=== PATIENT | female | born 1995 | race Two or more races ===

== ENCOUNTER 2016-06-11 13:23 | Emergency (ER) | payer MEDICAID ==
--- NOTE | 2016-06-11 14:10 | ER Document Report ---
ED Medical Screen (RME) - General Chief Complaint: Abdominal Pain Stated Complaint: POSSIBLE Notes: This 21-year-old female patient comes emergency room requesting a test. She eventually decided her last menstrual period was April 22. She reports cramping in the abdomen in the mornings. I have greeted and performed a rapid initial assessment of this patient. A comprehensive ED assessment and evaluation of the patient, analysis of test results and completion of the medical decision making process will be conducted by additional ED providers. TRAVEL OUTSIDE OF THE [place] IN LAST 30 DAYS: No Past Medical History Renal/ Medical History: Denies: Hx Peritoneal Dialysis Physical Exam - Vital signs Vitals: Temp Pulse Resp BP Pulse Ox 98.6 F 81 18 101/85 100 06/11/16 13:33 06/11/16 13:33 06/11/16 13:33 06/11/16 13:33 06/11/16 13:33 Course - Vital Signs Vital signs: Temp Pulse Resp BP Pulse Ox 98.6 F 81 18 101/85 100 06/11/16 13:33 06/11/16 13:33 06/11/16 13:33 06/11/16 13:33 06/11/16 13:33
[2016-06-11 14:39] LABS: APPEARANCE,URINE SLIGHTLY-CLOUDY; BILIRUBIN,URINE NEGATIVE (NEGATIVE); GLUCOSE, URINE NEGATIVE (NEGATIVE); KETONES,URINE NEGATIVE (NEGATIVE); LEUKOCYTE ESTERASE,URINE TRACE (NEGATIVE); NITRITE,URINE NEGATIVE (NEGATIVE); PROTEIN,URINE NEGATIVE (NEGATIVE); URINE SPECIFIC GRAVITY 1.016; UROBILINOGEN,URINE NEGATIVE mg/dL (<2.0)
--- NOTE | 2016-06-11 17:11 | ER Document Report ---
ED GI/ - General Chief Complaint: Abdominal Pain Stated Complaint: POSSIBLE Time seen by provider: 17:09 Mode of Arrival: Ambulatory Information source: Patient Notes: 21-year-old G0 female missed her menses May 20 and suspected 4-5 days ago when she had brief spotting when she urinated. She's been having morning intermittent mild cramping in the pelvis. No vaginal discharge or odor. No dysuria frequency or urgency. No nausea or vomiting. Her urine test was positive the serum quantitative has not been drawn. She has been to ultrasound. TRAVEL OUTSIDE OF THE [place] IN LAST 30 DAYS: No - Related Data Allergies/Adverse Reactions: No Known Allergies Allergy (Unverified 06/11/16 17:25) Past Medical History - General Information source: Patient - Social History Smoking Status: Never Smoker Frequency of alcohol use: None Drug Abuse: None Lives with: Family Family History: Reviewed & Not Pertinent Patient has suicidal ideation: No Patient has homicidal ideation: No - Medical History Medical History: Negative Renal/ Medical History: Denies: Hx Peritoneal Dialysis Surgical Hx: Negative Review of Systems - Review of Systems Constitutional: No symptoms reported EENT: No symptoms reported Cardiovascular: No symptoms reported Respiratory: No symptoms reported Gastrointestinal: No symptoms reported Genitourinary: No symptoms reported Female Genitourinary: See HPI Musculoskeletal: No symptoms reported Skin: No symptoms reported Hematologic/Lymphatic: No symptoms reported Neurological/Psychological: No symptoms reported Physical Exam - Vital signs Vitals: Temp Pulse Resp BP Pulse Ox 98.6 F 81 18 101/85 100 06/11/16 13:33 06/11/16 13:33 06/11/16 13:33 06/11/16 13:33 06/11/16 13:33 Interpretation: Normal - General General appearance: Appears well, Alert In distress: None - HEENT Head: Normocephalic, Atraumatic Eyes: Normal Pupils: PERRL Neck: Supple - Respiratory Respiratory status: No respiratory distress Chest status: Nontender Breath sounds: Normal Chest palpation: Normal - Cardiovascular Rhythm: Regular Heart sounds: Normal auscultation Murmur: No - Abdominal Inspection: Normal Distension: No distension Bowel sounds: Normal Tenderness: Nontender. No: Tender Organomegaly: No organomegaly - Back Back: Normal, Nontender. No: CVA tenderness - Extremities General upper extremity: Normal inspection, Nontender, Normal color, Normal ROM , Normal temperature General lower extremity: Normal inspection, Nontender, Normal color, Normal ROM , Normal temperature, Normal weight bearing. No: Shalini's sign - Neurological Neuro grossly intact: Yes Cognition: Normal Orientation: AAOx4 Theresa Coma Scale Eye Opening: Spontaneous [place] Coma Scale Verbal: Oriented Theresa Coma Scale Motor: Obeys Commands [place] Coma Scale Total: 15 Speech: Normal Motor strength normal: LUE, RUE, LLE, RLE Sensory: Normal - Psychological Associated symptoms: Normal affect, Normal mood - Skin Skin Temperature: Warm Skin Moisture: Dry Skin Color: Normal Skin irregularity: negative: Rash Course - Re-evaluation Re-evalutation: 06/11/16 17:28 IUP with heart tones of 174 measuring 6 weeks 1 day crown to rump length per radiologist. No subchorionic bleed. Urinalysis is negative. Quantitative is 11,802 which is low for 6 weeks and 1 day, she can follow-up with the health department now that the ultrasound said 6 weeks and 1 day and they can follow- up with hcg levels. Blood type is B+ she will not need RhoGAM. - Vital Signs Vital signs: Temp Pulse Resp BP Pulse Ox 97.5 F 80 16 119/74 100 06/11/16 18:41 06/11/16 18:41 06/11/16 18:41 06/11/16 18:41 06/11/16 18:41 - Laboratory Laboratory results interpreted by me: 06/11/16 06/11/16 14:10 17:10 Beta HCG, Quant 93066.00 H Ur Leukocyte Esterase TRACE H Urine HCG, Qual POSITIVE H Discharge - Discharge Clinical Impression: early viable IUP 6 weeks 1 day Condition: Good Disposition: HOME, SELF-CARE Instructions: Pelvic Pain in ([facility]), ([facility]), [facility], [facility] ([facility]) Additional Instructions: See the health department All the labs and imaging have been given to you Return to the emergency room for increased pain or vaginal bleeding Drink 2 L of water per day Stop drinking caffeine Stop smoking cigarettes and marijuana multivitamin daily no [id number] medicines No alcohol Please complete the patient satisfaction survey if you get one, and return it.. If you do not receive a survey, then you can go to the [facility] website, [email or web address] and place your comments about your very good care. Thank you very much. It was a pleasure being your medical provider today. Forms: Return to Work
[2016-06-11 18:48] VITALS: BP 119/74
== END 2016-06-11 18:48 | disposition home or self-care (01) ==
LOC: ER 13:23
DX: O26.91 Pregnancy related conditions, unspecified, first trimester (principal); Z3A.01 Less than 8 weeks gestation of pregnancy
CPT/HCPCS: 36415; 76817; 81001; 81025; 84702; 86900; 86901; 99284

== ENCOUNTER 2016-06-25 12:25 | Emergency (ER) | payer MEDICAID ==
--- NOTE | 2016-06-25 13:35 | ER Document Report ---
ED General - General Chief Complaint: Vag Bleeding, +preg <12wks Stated Complaint: ABDOMINAL CRAMPING/VAGINAL BLEEDING Mode of Arrival: Ambulatory Information source: Patient Notes: 21-year-old female who is approximately 8 weeks who confirmed IUP 2 weeks ago presents with complaints of vaginal spotting. Patient admits to mild cramping the left lower quadrant. Denies any large clots. TRAVEL OUTSIDE OF THE [place] IN LAST 30 DAYS: No - HPI Onset: Other - 3 days Onset/Duration: Intermittent Quality of pain: Cramping Severity: Mild Pain Level: 1 Associated symptoms: Other Exacerbated by: Denies Relieved by: Denies Similar symptoms previously: Yes Recently seen / treated by doctor: Yes - Related Data Allergies/Adverse Reactions: No Known Allergies Allergy (Verified 06/25/16 12:33) Past Medical History - General Last Menstrual Period: 04/2016 - Social History Smoking Status: Never Smoker Cigarette use (# per day): No Chew tobacco use (# tins/day): No Smoking Education Provided: No Family History: Reviewed & Not Pertinent Patient has suicidal ideation: No Patient has homicidal ideation: No Renal/ Medical History: Denies: Hx Peritoneal Dialysis - Immunizations Hx Diphtheria, Pertussis, Tetanus Vaccination: No Review of Systems - Review of Systems Notes: REVIEW OF SYSTEMS: CONSTITUTIONAL : Denies fever, chills, or sweats. Denies recent illness. EENT: Denies eye, ear, throat, or mouth pain or symptoms. Denies nasal or sinus congestion or discharge. Denies throat, tongue, or mouth swelling or difficulty swallowing. CARDIOVASCULAR: Denies chest pain. Denies palpitations or racing or irregular heart beat. Denies ankle edema. RESPIRATORY: Denies cough, cold, or chest congestion. Denies shortness of breath, difficulty breathing, or wheezing. GASTROINTESTINAL: Denies abdominal pain or distention. Denies nausea, vomiting , or diarrhea. Denies blood in vomitus, stools, or per rectum. Denies black, tarry stools. Denies constipation. GENITOURINARY: Denies difficulty urinating, painful urination, burning, frequency, blood in urine, or discharge. FEMALE GENITOURINARY: Admits to vaginal bleeding MUSCULOSKELETAL: Denies back or neck pain or stiffness. Denies joint pain or swelling. SKIN: Denies rash, lesions or sores. HEMATOLOGIC : Denies easy bruising or bleeding. LYMPHATIC: Denies swollen, enlarged glands. NEUROLOGICAL: Denies confusion or altered mental status. Denies passing out or loss of consciousness. Denies dizziness or lightheadedness. Denies headache. Denies weakness or paralysis or loss of use of either side. Denies problems with gait or speech. Denies sensory loss, numbness, or tingling. Denies seizures. PSYCHIATRIC: Denies anxiety or stress. Denies depression, suicidal ideation, or homicidal ideation. ALL OTHER SYSTEMS REVIEWED AND NEGATIVE. Dictation was performed using [employer] voice recognition software PHYSICAL EXAMINATION: GENERAL: Well-appearing, well-nourished and in no acute distress. HEAD: Atraumatic, normocephalic. EYES: Pupils equal round and reactive to light, extraocular movements intact, conjunctiva are normal. ENT: Nares patent, oropharynx clear without exudates. Moist mucous membranes. NECK: Normal range of motion, supple without lymphadenopathy LUNGS: Breath sounds clear to auscultation bilaterally and equal. No wheezes rales or rhonchi. HEART: Regular rate and rhythm without murmurs ABDOMEN: Soft, nontender, nondistended abdomen. No guarding, no rebound. No masses appreciated. Female : deferred Musculoskeletal: Normal range of motion, no pitting or edema. No cyanosis. NEUROLOGICAL: Cranial nerves grossly intact. Normal speech, normal gait. Normal sensory, motor exams PSYCH: Normal mood, normal affect. SKIN: Warm, Dry, normal turgor, no rashes or lesions noted. Physical Exam - Vital signs Vitals: Temp Pulse Resp BP Pulse Ox 98.2 F 87 16 125/71 99 06/25/16 12:35 06/25/16 12:35 06/25/16 12:35 06/25/16 12:35 06/25/16 12:35 Course - Re-evaluation Re-evalutation: 06/25/16 13:35 Patient will be ruled out for miscarriage otherwise well-appearing blood type B positive 06/25/16 16:06 Ultrasound is consistent with 7 week 5 day , given bleeding there is concern for threatened miscarriage however patient looks well is in no distress at this time I will discharge with the understanding that they follow-up with OB /[employer] Patient is nauseous will be discharged home and nausea medication After performing a Medical Screening Examination, I estimate there is LOW risk for ACUTE APPENDICITIS, BOWEL OBSTRUCTION, ACUTE CHOLECYSTITIS, PERFORATED DIVERTICULITIS, INCARCERATED HERNIA, PANCREATITIS, PELVIC INFLAMMATORY DISEASE, PERFORATED ULCER, ECTOPIC , or TUBO-OVARIAN ABSCESS, thus I consider the discharge disposition reasonable. Also, there is no evidence or peritonitis , sepsis, or toxicity. I have reevaluated this patient multiple times and no significant life threatening changes are noted. The patient and I have discussed the diagnosis and risks, and we agree with discharging home with close follow-up with the understanding that symptoms and presentations can change. We also discussed returning to the Emergency Department immediately if new or worsening symptoms occur. We have discussed the symptoms which are most concerning (e.g., bloody stool, fever, changing or worsening pain, vomiting) that necessitate immediate return. 06/25/16 16:08 06/25/16 16:08 - Vital Signs Vital signs: Temp Pulse Resp BP Pulse Ox 98.2 F 87 16 125/71 99 06/25/16 12:35 06/25/16 12:35 06/25/16 12:35 06/25/16 12:35 06/25/16 12:35 - Laboratory Result Diagrams: 06/25/16 13:22 06/25/16 13:22 Laboratory results interpreted by me: 06/25/16 06/25/16 13:22 13:22 Beta HCG, Quant 58495.00 H Urine Blood SMALL H - Diagnostic Test Radiology reviewed: Image reviewed, Reports reviewed - 7 week 5 day Discharge - Discharge Clinical Impression: Threatened miscarriage in early , Nausea/vomiting in Condition: Stable Disposition: HOME, SELF-CARE Instructions: Vomiting ([facility]), ([facility]), Bleeding During Early ([facility]) Prescriptions: Metoclopramide HCl [Reglan 10 mg Tablet] 1 - 2 tab PO ASDIR PRN #25 tablet PRN Reason: Referrals: [facility] [Provider Group] - Follow up tomorrow
[2016-06-25 14:13] LABS: ABSOLUTE EOSINOPHILS # (AUTO) 0.1 10^3/uL (0.0-0.6); ABSOLUTE LYMPHOCYTES (AUTO) 1.4 10^3/uL (0.5-4.7); ABSOLUTE MONOCYTES (AUTO) 0.7 10^3/uL (0.1-1.4); ABSOLUTE NEUT (AUTO) 5.5 10^3/uL (1.7-8.2); BASOPHILS % (AUTO) 0.5 % (0-2); EOSINOPHILS % (AUTO) 0.8 % (0-6); HEMATOCRIT 40.7 % (36.0-47.0); HEMOGLOBIN 13.7 g/dL (12.0-15.5); HGB HCT DIFFERENCE 0.4; LYMPHOCYTES % (AUTO) 18.5 % (13-45); MEAN CORPUSCULAR HEMOGLOBIN 31.6 pg (27.0-33.4); MEAN CORPUSCULAR HGB CONC 33.7 g/dL (32.0-36.0); MEAN CORPUSCULAR VOLUME 94 fl (80-97); MONOCYTES % (AUTO) 8.9 % (3-13); RED BLOOD COUNT 4.34 10^6/uL (3.72-5.28); SEGMENTED NEUTROPHILS % (AUTO) 71.3 % (42-78); WHITE BLOOD COUNT 7.7 10^3/uL (4.0-10.5)
[2016-06-25 14:26] LABS: APPEARANCE,URINE CLEAR; BILIRUBIN,URINE NEGATIVE (NEGATIVE); GLUCOSE, URINE NEGATIVE (NEGATIVE); KETONES,URINE NEGATIVE (NEGATIVE); LEUKOCYTE ESTERASE,URINE NEGATIVE (NEGATIVE); NITRITE,URINE NEGATIVE (NEGATIVE); PROTEIN,URINE NEGATIVE (NEGATIVE); URINE SPECIFIC GRAVITY 1.005; UROBILINOGEN,URINE NEGATIVE mg/dL (<2.0)
[2016-06-25 14:32] LABS: ALANINE AMINOTRANSFERASE 20 U/L (9-52); ALBUMIN 4.7 g/dL (3.5-5.0); ALKALINE PHOSPHATASE 55 U/L (38-126); ANION GAP 13 (5-19); ASPARTATE AMINO TRANSFERASE 19 U/L (14-36); BILIRUBIN,DIRECT 0.3 mg/dL (0.0-0.4); BILIRUBIN,TOTAL 0.8 mg/dL (0.2-1.3); BLOOD UREA NITROGEN 7 mg/dL (7-20); CALCIUM 9.8 mg/dL (8.4-10.2); CARBON DIOXIDE 26 mmol/L (22-30); CHLORIDE 101 mmol/L (98-107); CREATININE RESULT 0.54 mg/dL (0.52-1.25); GLUCOSE 83 mg/dL (75-110); POTASSIUM 3.9 mmol/L (3.6-5.0); SODIUM 139.7 mmol/L (137-145); TOTAL PROTEIN 8.2 g/dL (6.3-8.2)
[2016-06-25] MEDS ORDERED: METOCLOPRAMIDE HCL 10 MG TABLET PO ONE (16:06)
[2016-06-25 16:16] VITALS: BP 125/75
== END 2016-06-25 16:10 | disposition home or self-care (01) ==
LOC: ER 12:25
DX: O20.0 Threatened abortion (principal); O21.9 Vomiting of pregnancy, unspecified; O26.891 Other specified pregnancy related conditions, first trimester; R10.32 Left lower quadrant pain; Z3A.01 Less than 8 weeks gestation of pregnancy
CPT/HCPCS: 99284; 36415; 84702; 85025; 80053; 81001; 76817; J3490

== ENCOUNTER 2017-01-22 14:14 | Outpatient (CLI) | payer MEDICAID ==
--- NOTE | 2017-01-22 15:22 | Non Stress Test Report ---
Non Stress Test Datetime Report Generated by CPN: 01/22/2017 15:22 DEMOGRAPHIC EGA NST: 38.2 INDICATION Indication for Study: Diabetes Mellitus MONITORING Monitor Explained: Monitor Explained; Test Explained; Patient Verbalized Understanding Time on Monitor: 01/22/2017 14:26 Time off Monitor: 01/22/2017 15:08 NST Duration: 42 NST INTERVENTIONS NST Interventions: PO Hydration; Reposition Patient Physician Notified NST: Niall BABY A: [id number] BABY A Movement : Present Contraction Frequency : x1 FHR Baseline : 135 Accelerations : 15X15 Decelerations : None Variability : Moderate 6-25bpm NST Review: Meets Criteria for Reactive NST NST Review and Verified By : Chasidy Shepard RN NST Results: Reactive NST REPORT Report Trigger: Send Report
== END 2017-01-22 15:10 | disposition home or self-care (01) ==
LOC: LC 14:14
PROVIDERS: ATTEND Obstetrics & Gynecology
PROC: 4A1HXCZ Monitoring of Products of Conception, Cardiac Rate, External Approach (ICD-10-PCS; principal; 2017-01-22)
DX: O24.419 Gestational diabetes mellitus in pregnancy, unspecified control (principal); Z3A.38 38 weeks gestation of pregnancy
CPT/HCPCS: 59025

== ENCOUNTER 2017-01-27 20:18 | Inpatient (IN) | payer MEDICAID ==
[2017-01-27] MEDS ORDERED: RINGERS SOLUTION,LACTATED 1,000 ML IV ONE (20:56)
[2017-01-27 20:57] LABS: APPEARANCE,URINE CLEAR; BILIRUBIN,URINE NEGATIVE (NEGATIVE); GLUCOSE, URINE NEGATIVE (NEGATIVE); KETONES,URINE NEGATIVE (NEGATIVE); LEUKOCYTE ESTERASE,URINE SMALL (NEGATIVE); NITRITE,URINE NEGATIVE (NEGATIVE); PROTEIN,URINE NEGATIVE (NEGATIVE)
[2017-01-27 21:05] LABS: AMNISURE (ROM) NEGATIVE (NEGATIVE)
[2017-01-27 21:10] LABS: URINE BARBITURATES SCREEN NEGATIVE; URINE METHADONE SCREEN NEGATIVE; URINE OPIATES LOW NEGATIVE; URINE PHENCYCLIDINE SCREEN NEGATIVE
[2017-01-27 21:44] LABS: HEMATOCRIT 36.8 % (36.0-47.0); HEMOGLOBIN 12.6 g/dL (12.0-15.5); MEAN CORPUSCULAR HEMOGLOBIN 31.2 pg (27.0-33.4); MEAN CORPUSCULAR HGB CONC 34.2 g/dL (32.0-36.0); MEAN CORPUSCULAR VOLUME 91 fl (80-97); RED BLOOD COUNT 4.03 10^6/uL (3.72-5.28); RED CELL DISTRIBUTION WIDTH 13.8 % (11.5-14.0); WHITE BLOOD COUNT 9.5 10^3/uL (4.0-10.5)
[2017-01-27] MEDS ORDERED: BUPIVACAINE HCL 0.25 % INJ/PF (2.5 MG/1 ML) 30 ML VIAL ONE (21:53)
[2017-01-27] MEDS ORDERED: EPHEDRINE SULFATE INJ 50 MG/1 ML AMPULE ONE (21:53)
[2017-01-27] MEDS ORDERED: FENTANYL/BUPIVACAINE/NS/PF 200 MCG/100 ML RTUINJ EPI ONE (21:53)
[2017-01-27] MEDS ORDERED: MISOPROSTOL 0.2 MG TABLET ONE (23:28)
[2017-01-27] MEDS ORDERED: OXYTOCIN/NORMAL SALINE 20 UNIT/1,000 ML RTUINJ ONE (23:28)
[2017-01-27] MEDS ORDERED: LIDOCAINE 1% INJ-PF (10 MG/ML) 30 ML SDV ONE (23:28)
[2017-01-28] MEDS ORDERED: OXYTOCIN/NORMAL SALINE 0 UNIT/0 ML RTUINJ ONE (00:16)
[2017-01-28] MEDS ORDERED: OXYTOCIN/NORMAL SALINE 20 UNIT/1,000 ML RTUINJ IV PRN ×2 (00:21→04:47)
--- NOTE | 2017-01-28 01:18 | L&D Progress Notes ---
PROGRESS NOTES Datetime Report Generated by CPN: 01/28/2017 01:18 PROGRESS NOTE Impression: Reassuring Heart Rate Procedures: Artificial ROM; Sterile Vag Exam Plan: Continue Present Management; Augmentation Informed Consent Obtained: Vaginal Delivery Informed Consent Obtained: Vaginal Delivery; Risks, Benefits and Alternatives Discussed Vital Signs : Reviewed; Within Normal Limits Comment: pt with mild variables with contractions. Irregular ctx - will continue with augmentation with pitocin. Cvx with change noted. AROM with clear fluid. may need trendelenberg as baby feels asynclytic. Will cont with peanut ball and position change. REassuring FWB and pelvis adequate for LAWRENCE. EFW 7# VAGINAL EXAM Dilatation: 8 Dilatation: 5 Effacement: 90 Effacement: 70 Station: -1 Station: -2 Contractions: q 1-3 Contractions: irreg MEMBRANES Membranes: Intact FETUS A FHR - Baseline: 150 Monitoring: External US Variability: Moderate 6-25bpm Accelerations: 15X15 Decelerations: Variable FHR Category: Category I Presentation: Vertex SIGNATURE SIGNATURE: [id number];[id number] SIGNATURE: [id number] Signature: with User ID: [email or web address]
[2017-01-28] MEDS ORDERED: ONDANSETRON HCL INJ/PF 4 MG/2 ML SDV IV ONE (01:19)
[2017-01-28] MEDS ORDERED: ONDANSETRON HCL INJ/PF 4 MG/2 ML SDV ONE (01:20)
[2017-01-28] MEDS ORDERED: DIBUCAINE 1% OINTMENT 28 GM TP PRN (04:47)
[2017-01-28] MEDS ORDERED: PROMETHAZINE HCL 25 MG SUPP.RECT PR PRN (04:47)
[2017-01-28] MEDS ORDERED: GLYCERIN/WITCH HAZEL LEAF 1 EACH MED..PAD TP PRN (04:47)
[2017-01-28] MEDS ORDERED: MAGNESIUM HYDROXIDE SUSP 30 ML UDCUP PO PRN (04:47)
[2017-01-28] MEDS ORDERED: PROMETHAZINE HCL 25 MG TABLET PO PRN (04:47)
[2017-01-28] MEDS ORDERED: ACETAMINOPHEN 650 MG SUPP.RECT PR PRN (04:47)
[2017-01-28] MEDS ORDERED: ZOLPIDEM TARTRATE 5 MG TABLET PO PRN (04:47)
[2017-01-28] MEDS ORDERED: MEASLES,MUMPS&RUBELLA VACC/PF 0.5 ML VIAL SUBCUT PRN (04:47)
[2017-01-28] MEDS ORDERED: DIPH/PERTUSS(ACELL)/TETANUS VAC/PF 0.5 ML SYR (>=10YO) IM PRN (04:47)
[2017-01-28] MEDS ORDERED: NA PHOS,M-B/NA PHOS,DI-BA (ADULT) 133 ML ENEMA PR PRN (04:47)
[2017-01-28] MEDS ORDERED: DIPHENHYDRAMINE HCL 25 MG CAPSULE PO PRN (04:47)
[2017-01-28] MEDS ORDERED: PSEUDOEPHEDRINE HCL 30 MG TABLET PO PRN (04:47)
[2017-01-28] MEDS ORDERED: PROMETHAZINE HCL INJ 25 MG/1 ML VIAL IV PRN (04:47)
[2017-01-28] MEDS ORDERED: VARICELLA VACC/PF (1350 UNIT/0.5 ML) 0.5 ML VIAL SUBCUT ONE (04:48)
[2017-01-28] MEDS ORDERED: DIPHENHYDRAMINE HCL 25 MG CAPSULE ONE (05:37)
[2017-01-28] MEDS ORDERED: IBUPROFEN 800 MG TABLET ONE (05:37)
[2017-01-28] MEDS: IBUPROFEN 800 MG TABLET PO SCH ×3 (05:39→22:29)
--- NOTE | 2017-01-28 05:55 | Delivery Summary ---
Del Sum A-C Datetime Report Generated by CPN: 01/28/2017 05:55 DELIVERY PERSONNEL DELIVERY PERSONNEL: [id number] Delivery Doctor:: Angelique Castorena MD Labor and Delivery Nurse:: Lucero Ambrose RNpeeler operator Nurse:: Claudia Yousif RN Noodle Catalyst Maker/BUILDING CUSTODIAN: Wesley Ertel, BUILDING CUSTODIAN MATERNAL INFORMATION Delivery Anesthesia: Epidural Medications After Delivery: Pitocin Drip 20 Units/1000ml NSS Estimated Blood Loss (ml): 250 Maternal Complications: None Provider Comments: VFI delivered in CLAUDIA presentation. No nuchal cord. Shoulders and body delivered without difficulty. Cord doubly clamped and cut and to maternal abdomen. Placenta delivered intact spontaneously. FF at U. Good hemostasis after repair of superficial vaginal sidewall laceration on left. Mother and baby stable upon provider leaving the room. 9/9. Weight pending. LABOR SUMMARY EDC: 02/03/2017 00:00 No. Babies in Womb: 1 Attempted: No Labor Anesthesia: Epidural LABOR INFORMATION Reason for Induction: Not Applicable Onset of Labor: 01/27/2017 20:55 Complete Dilatation: 01/28/2017 03:43 Oxytocin: Augmentation Group B Beta Strep: negative Antibiotics # of Doses: 0 Steroids Given: None Reason Steroids Not Administered: Not Applicable MEMBRANES Membranes Rupture Method: Artificial Rupture of Membranes: 01/28/2017 01:14 Length of Rupture (hr): 3.25 Amniotic Fluid Color: Clear Amniotic Fluid Amount: Small Amniotic Fluid Odor: None STAGES OF LABOR Stage 1 hr: 6 Stage 1 min: 48 Stage 2 hr: 0 Stage 2 min: 46 Stage 3 hr: 0 Stage 3 min: 3 Total Time in Labor hr: 7 Total Time in Labor min: 37 VAGINAL DELIVERY Episiotomy: None Laceration #1: Vaginal Laceration Extension #1: N/A Laceration Repair: Yes Laceration Repair Note: superficial vaginal sidewall laceration repaired in usual fashion with good hemostasis Sponge Count Correct: Yes Sharps Count Correct: Yes CSECTION DELIVERY Primary Indication: N/A Secondary Indication: N/A CSection Incidence: N/A Labor: N/A Elective: N/A CSection Incision: N/A BABY A INFORMATION Infant Delivery Date/Time: 01/28/2017 04:29 Method of Delivery: Vaginal Born in Route : No : N/A Forceps: N/A Vacuum Extraction: N/A Shoulder Dystocia : No PRESENTATION/POSITION BABY A Presentation: Cephalic Cephalic Presentation: Vertex Vertex Position: Left Occipital Anterior Breech Presentation: N/A PLACENTA INFORMATION BABY A Placenta Delivery Time : 01/28/2017 04:32 Placenta Method of Delivery: Spontaneous Placenta Status: Delivered SCORES BABY A Heart Rate 1 min: >100 bpm Resp Effort 1 min: Good Cry Reflex Irritability 1 min: Cough or Sneeze or Pulls Away Muscle Tone 1 min: Active Motion Color 1 min: Body [place], Extremities Blue Resuscitation Effort 1 min: N/A SCORE 1 MIN: 9 Heart Rate 5 min: >100 bpm Resp Effort 5 min: Good Cry Reflex Irritability 5 min: Cough or Sneeze or Pulls Away Muscle Tone 5 min: Active Motion Color 5 min: Body [place], Extremities Blue Resuscitation Effort 5 min: N/A SCORE 5 MIN: 9 INFANT INFORMATION BABY A Gestational Age at Delivery: 39.1 Gestational Status: Full Term- 39- 40.6 Weeks Outcome : Liveborn Infant Condition : Stable Sex: Female IDENTIFICATION BABY A Infant Verification Date/Time: 01/28/2017 04:50 ID Band Number: [id number] Mother's Name Verified: Yes RN Verifying : Pio Yousif RN/Junior Clarke RN WEIGHT/LENGTH BABY A Birthweight (gm): 2670 Weight (lb): 5 Weight (oz): 14 Length (in): 18.50 Length (cm): 46.99 CORD INFORMATION BABY A No. Cord Vessels: 3 Nuchal Cord : N/A Cord Blood Taken: Yes-For Storage (Mom's Blood type +) Infant Suction: Mouth; Nose ASSESSMENT BABY A Infant Complications: None Physical Findings at Delivery: Within Normal Limits Respirations: Appears Normal Skin to Skin: Yes Skin to Skin Time (min): 50 Motor Builder Winder/ALS Called : No Infant Care By: Pio Yousif RN Transferred To: Remains with Mother BABY B INFORMATION : N/A SIGNATURES Signature: Electronically signed by Angelique Castorena MD ([facility]) on 01/28/2017 at 04:45 with User ID: [email or web address]
--- NOTE | 2017-01-28 07:25 | Admission Physical ---
Datetime Report Generated by CPN: 01/28/2017 07:24 CURRENT ADMISSION Chief Complaint: Uterine Contractions Indication for Induction: Not Applicable Indication for Induction: Term, Intrauterine ; Active Labor; Intact Membranes Admit Plan: Admit to Unit; Initiate Labor Protocol ALLERGIES Medication Allergies: No Medication Allergies: No Known Allergies (01/27/2017) Medication Allergies: No Known Allergies (01/22/2017) Medication Allergies: No Known Allergies (06/25/2016) Latex: No Latex Allergies Food Allergies: none Environmental Allergies: none OBSTETRICAL HISTORY EDC: 02/03/2017 00:00 : 1 Para: 0 Term: 0 : 0 SAB: 0 IAB: 0 Ectopic: 0 Livin Cesareans: 0 VBACs: 0 Multiple Births: 0 Gestational Diabetes: Yes Rh Sensitization: No Incompetent Cervix: No TEGAN: No Infertility: No ART Treatment: No Uterine Anomaly: No IUGR: No Hx Previous C/S: No Macrosomia: No Hx Loss/Stillborn: No PIH: No Hx : No Placenta Previa/Abruption: No Depression/PP Depression: No PTL/PROM: No Post Hemorrhage: No Current Procedures: Ultrasound; NST SEE RECORDS Alcohol: No Marijuana : No Cocaine: No Other Illicit Drugs: No Cigarettes: Never Smoker. [id number] MEDICAL HISTORY Diabetes: Yes Diabetes Type: Gestational Diabetes Blood Transfusion: No Pulmonary Disease (Asthma, TB): Yes Breast Disease: No Hypertension: No Prototyper Surgery: No Heart Disease: No Hosp/Surgery: No Autoimmune Disorder: No Anesthetic Complications: No Kidney Disease: No Abnormal Pap Smear: No Neuro/Epilepsy: No Psychiatric Disorders: No Other Medical Diseases: No Hepatitis/Liver Disease: No Significant Family History: No Varicosities/Phlebitis: No Trauma/Violence : No Thyroid Dysfunction: No Medical History Comments: childhood asthma INFECTIOUS HISTORY Gonorrhea: No Genital Herpes: No Chlamydia: No Tuberculosis: No Syphilis: No Hepatitis: No HIV/AIDS Exposure: No Rash or Viral Illness: No HPV: No PHYSICAL EXAM General: Normal HEENT: Normal Neurologic: Normal Thyroid: Deferred Heart: Normal Lungs: Normal Breast: Deferred Back: Normal Abdomen: Normal Genitourinary Exam: Normal Extremities: Normal DTRs: Normal Pelvic Type: Adequate Vital Signs: Reviewed VAGINAL EXAM Dilatation: 8 Dilatation: 5 Effacement: 90 Effacement: 70 Station: -1 Station: -2 Contraction Comments: q 1-3 Contraction Comments: irreg MEMBRANES Membranes: Intact FETUS A EGA: 39.0 Monitoring: External US FHR- Baseline: 145 Variability: Moderate 6-25bpm Accelerations: 15X15 Decelerations: None FHR Category: Category I Presentation: Vertex Admit Comment: 21yo at 39+0ega by 1st trimester US not c/w LMP dating presents with irregular uterine ctx and pelvic pressure. Cvx /-2. Reviewed recommendations for admission due to early active labor. Pt verbalized understanding. She is considering epidural for pain management. Significant social hisotry with FOB recently out of incarceration and brother of patient is heroin addict per chart - will need discharge planning consult. Pt with poor care with lapse in care from 28wks to 36wks. Varicella NI - need vaccination pp. Secondhand smoke exposure. Anticpate . Pelvis adequate for LAWRENCE and EFW approx 7-7.5# PLANS FOR LABOR AND DELIVERY Labor and Delivery: None Pain Management: Epidural Feeding Preference: Formula Benefit of Breast Feed Discussed: Yes Circumcision: N/A INFORMED CONSENT Informed Consent Obtained: Vaginal Delivery Informed Consent Obtained: Vaginal Delivery; Risks, Benefits and Alternatives Discussed Signature: with User ID: [email or web address]
[2017-01-28] MEDS: FAMOTIDINE 20 MG TABLET PO SCH ×2 (10:52→22:29)
[2017-01-28] MEDS: SENNOSIDES/DOCUSATE 8.6-50 MG 1 EACH TABLET PO SCH (10:52)
[2017-01-28] MEDS: FERROUS SULFATE 325 MG TABLET PO SCH ×2 (10:52→17:10)
[2017-01-28] MEDS: DOCUSATE SODIUM 100 MG CAPSULE PO SCH ×2 (10:52→17:11)
[2017-01-28] MEDS: PRENATAL VITAMIN W DHA CAPSULE PO SCH (10:52)
[2017-01-28] MEDS: BENZOCAINE/MENTHOL AEROSOL SPRAY 56 ML TOP PRN (13:30)
[2017-01-28] MEDS: ACETAMINOPHEN WITH CODEINE #3 TABLET PO PRN (20:14)
[2017-01-29] MEDS: ACETAMINOPHEN WITH CODEINE #3 TABLET PO PRN ×3 (04:37→18:31)
[2017-01-29] MEDS: IBUPROFEN 800 MG TABLET PO SCH ×3 (05:54→21:57)
[2017-01-29 08:02] LABS: HEMATOCRIT 32.8 % (36.0-47.0); HEMOGLOBIN 11.2 g/dL (12.0-15.5); HGB HCT DIFFERENCE 0.8; MEAN CORPUSCULAR HEMOGLOBIN 31.3 pg (27.0-33.4); MEAN CORPUSCULAR VOLUME 92 fl (80-97); RED BLOOD COUNT 3.57 10^6/uL (3.72-5.28); RED CELL DISTRIBUTION WIDTH 13.7 % (11.5-14.0); WHITE BLOOD COUNT 9.7 10^3/uL (4.0-10.5)
--- NOTE | 2017-01-29 09:45 | PDOC PROGRESS REPORT ---
Subjective Progress Note for:: 01/29/17 Subjective:: no complaints Reason For Visit: , GBS NEGATIVE, ACTIVE LABOR Physical Exam - Physical Exam Vital Signs: Temp Pulse Resp BP Pulse Ox 98.4 F 77 18 126/80 H 100 01/29/17 08:28 01/29/17 08:28 01/29/17 08:28 01/29/17 08:28 01/29/17 08:28 Intake & Output 01/28/17 01/29/17 01/30/17 06:59 06:59 06:59 Intake Total 350 Balance 350 Weight 66.5 kg General appearance: PRESENT: no acute distress, well-developed, well-nourished Respiratory exam: PRESENT: clear to auscultation jean Cardiovascular exam: PRESENT: RRR. ABSENT: diastolic murmur, rubs, systolic murmur GI/Abdominal exam: PRESENT: normal bowel sounds, soft, other. ABSENT: distended , guarding, mass, organolmegaly, rebound, tenderness Extremities exam: PRESENT: full ROM. ABSENT: calf tenderness, clubbing, pedal edema Result Laboratory Results: 01/29/17 07:21 01/29/17 07:21 WBC 9.7 RBC 3.57 L Hgb 11.2 L Hct 32.8 L MCV 92 MCH 31.3 MCHC 34.0 RDW 13.7 Plt Count 172 Assessment & Plan - Plan Summary Plan Summary: routine PP care d/c in am
[2017-01-29] MEDS: SENNOSIDES/DOCUSATE 8.6-50 MG 1 EACH TABLET PO SCH (11:05)
[2017-01-29] MEDS: DOCUSATE SODIUM 100 MG CAPSULE PO SCH ×2 (11:05→17:49)
[2017-01-29] MEDS: FERROUS SULFATE 325 MG TABLET PO SCH ×2 (11:06→17:49)
[2017-01-29] MEDS: FAMOTIDINE 20 MG TABLET PO SCH ×2 (11:06→21:56)
[2017-01-29] MEDS: PRENATAL VITAMIN W DHA CAPSULE PO SCH (11:06)
[2017-01-29] MEDS: BENZOCAINE/MENTHOL AEROSOL SPRAY 56 ML TOP PRN (23:21)
[2017-01-30] MEDS: IBUPROFEN 800 MG TABLET PO SCH ×2 (06:10→14:27)
[2017-01-30] MEDS: PRENATAL VITAMIN W DHA CAPSULE PO SCH (09:28)
[2017-01-30] MEDS: FERROUS SULFATE 325 MG TABLET PO SCH (09:29)
[2017-01-30] MEDS: SENNOSIDES/DOCUSATE 8.6-50 MG 1 EACH TABLET PO SCH (09:29)
[2017-01-30] MEDS: FAMOTIDINE 20 MG TABLET PO SCH (09:30)
[2017-01-30] MEDS: DOCUSATE SODIUM 100 MG CAPSULE PO SCH (09:30)
--- NOTE | 2017-01-30 11:46 | PDOC PROGRESS REPORT ---
Subjective-OB Subjective: Post Delivery Day: 21 year old. Denies any needs at this time. Ready for discharge. Physical Exam (OB) Vital Signs: Temp Pulse Resp BP Pulse Ox 97.6 F 71 16 134/87 H 100 01/30/17 08:29 01/30/17 08:29 01/30/17 08:29 01/30/17 08:29 01/30/17 08:29 Intake & Output 01/29/17 01/30/17 01/31/17 06:59 06:59 06:59 Intake Total 350 Balance 350 - PIH/Pre-Eclampsia Headache: Absent Epigastric Pain: No Visual Changes: No - Lochia Lochia Amount: Small 10-25 ml Lochia Color: Rubra/Red - Abdomen Description: Tender, Soft, Round Hernia Present: No Bowel Sounds: Normoactive Flatus Presence: Present Stool: No Fundal Description: Firm, Midline Fundal Height: u/3 - u/4 Objective-Diagnostic Laboratory: 01/29/17 07:21
--- NOTE | 2017-01-30 11:51 | PDOC DISCHARGE SUMMARY ---
Final Diagnosis Discharge Date: 01/30/17 - Final Diagnosis (1) GDM (gestational diabetes mellitus) Is this a current diagnosis for this admission?: Yes (2) Marijuana use Is this a current diagnosis for this admission?: Yes (3) (normal spontaneous vaginal delivery) Is this a current diagnosis for this admission?: Yes (4) Maternal varicella, non-immune Is this a current diagnosis for this admission?: Yes (5) Poor patient attendance of care Is this a current diagnosis for this admission?: Yes Discharge Data - Discharge Medication Home Medications: Vit/Iron Fum/Folic AC [ Tablet] 1 tab PO DAILY 01/22/17 Gestational Age: 39.1 wks Reason(s) for Admission: Onset of Labor Procedures: Ultrasound Intrapartum Procedure(s): Spontaneous Vaginal Delivery Complication(s): Other - [place] Data Baby 1 Female at 1 minute: 9 at 5 minutes: 9 Weight: 2.665 kg Home with Mother: Yes Complications: No - Diagnosis Test Laboratory: Temp Pulse Resp BP Pulse Ox 97.6 F 71 16 134/87 H 100 01/30/17 08:29 01/30/17 08:29 01/30/17 08:29 01/30/17 08:29 01/30/17 08:29 01/27/17 01/27/17 01/29/17 20:42 21:26 07:21 RBC 4.03 3.57 L Hgb 12.6 11.2 L Hct 36.8 32.8 L Urine Opiates Screen NEGATIVE - Discharge information/Instructions Discharge Activity: Activity As Tolerated, Balance Activity w/Rest, Pelvic Rest , Slowly Increase Activity, No tub bath Discharge Diet: Regular Disposition: HOME, SELF-CARE Follow up with: [facility] in: 4, Weeks
[2017-01-30 12:54] VITALS: BP 134/84
[2017-01-30 13:01] LABS: APPEARANCE,URINE SLIGHTLY-CLOUDY; BILIRUBIN,URINE NEGATIVE (NEGATIVE); GLUCOSE, URINE NEGATIVE (NEGATIVE); KETONES,URINE NEGATIVE (NEGATIVE); LEUKOCYTE ESTERASE,URINE MODERATE (NEGATIVE); NITRITE,URINE NEGATIVE (NEGATIVE); PROTEIN,URINE NEGATIVE (NEGATIVE); URINE SPECIFIC GRAVITY 1.015; UROBILINOGEN,URINE NEGATIVE mg/dL (<2.0)
== END 2017-01-30 15:10 | disposition home or self-care (01) | DRG 775 ==
LOC: LC 20:18 → NUR 21:13 → LR 21:28 → 2S 01-28 07:10
PROVIDERS: ADMIT Student in an Organized Health Care Education/Training Program; ATTEND Student in an Organized Health Care Education/Training Program
PROC: 10E0XZZ Delivery of Products of Conception, External Approach (ICD-10-PCS; principal; 2017-01-28)
PROC: 3E0234Z Introduction of Serum, Toxoid and Vaccine into Muscle, Percutaneous Approach (ICD-10-PCS; 2017-01-30)
DX: O24.429 Gestational diabetes mellitus in childbirth, unspecified control (principal); O99.324 Drug use complicating childbirth; F12.90 Cannabis use, unspecified, uncomplicated; Z3A.39 39 weeks gestation of pregnancy; Z37.0 Single live birth; Z23 Encounter for immunization; Z63.72 Alcoholism and drug addiction in family
CPT/HCPCS: 36415; 80307; 81001; 84112; 85027; 86592; 86850; 86900; 86901; 87086; 90715; 90716; G0480; J2405; J2590; J3490

== ENCOUNTER 2018-05-21 15:47 | Outpatient (CLI) | payer MEDICAID ==
[2018-05-21 16:19] LABS: APPEARANCE,URINE SLIGHTLY-CLOUDY; BILIRUBIN,URINE NEGATIVE (NEGATIVE); COLOR,URINE YELLOW; GLUCOSE, URINE NEGATIVE (NEGATIVE); KETONES,URINE NEGATIVE (NEGATIVE); LEUKOCYTE ESTERASE,URINE LARGE (NEGATIVE); NITRITE,URINE NEGATIVE (NEGATIVE); PROTEIN,URINE NEGATIVE (NEGATIVE); URINE SPECIFIC GRAVITY 1.012; UROBILINOGEN,URINE NEGATIVE mg/dL (<2.0)
[2018-05-21 16:35] LABS: URINE AMPHETAMINES SCREEN NEGATIVE; URINE BARBITURATES SCREEN NEGATIVE; URINE BENZODIAZEPINES SCREEN NEGATIVE; URINE COCAINE SCREEN NEGATIVE; URINE METHADONE SCREEN NEGATIVE; URINE PHENCYCLIDINE SCREEN NEGATIVE
[2018-05-21 16:42] LABS: URINE MARIJUANA (THC) SCREEN UNCONFIRMED POSITIVE
--- NOTE | 2018-05-21 16:56 | Non Stress Test Report ---
Non Stress Test Datetime Report Generated by CPN: 05/21/2018 16:55 DEMOGRAPHIC EGA NST: 38.3 INDICATION Indication for Study: Ordered by Provider MONITORING Monitor Explained: Monitor Explained; Test Explained; Patient Verbalized Understanding Time on Monitor: 05/21/2018 15:58 Time off Monitor: 05/21/2018 16:50 NST Duration: 52 NST INTERVENTIONS NST Interventions: PO Hydration Physician Notified NST: A. Shepherd, CNM BABY A: [id number] BABY A Movement : Present Contraction Frequency : irregular FHR Baseline : 135 Accelerations : 15X15 Variability : Moderate 6-25bpm NST Review: Meets Criteria for Reactive NST NST Review and Verified By : JANNETTE Song Results: Reactive NST REPORT Report Trigger: Send Report
== END 2018-05-21 16:55 | disposition home or self-care (01) ==
LOC: LC 15:47
PROVIDERS: ATTEND Obstetrics & Gynecology Gynecology
PROC: 4A1HXCZ Monitoring of Products of Conception, Cardiac Rate, External Approach (ICD-10-PCS; principal; 2018-05-21)
DX: Z34.93 Encounter for supervision of normal pregnancy, unspecified, third trimester (principal)
CPT/HCPCS: 81005; 80307; 59025; G0480 ×2; 80349

== ENCOUNTER 2018-05-24 08:12 | Inpatient (IN) | payer MEDICAID ==
[2018-05-24 09:28] LABS: RBCS (WET MOUNT) RARE RBCS SEEN; T.VAGINALIS (WET MOUNT) NO TRICHOMONAS SEEN; WBCS (WET MOUNT) 3+ WBCS SEEN; YEAST (WET MOUNT) NO YEAST SEEN
[2018-05-24 09:29] LABS: BACTERIA (WET MOUNT) 4+ BACTERIA SEEN; EPITHELIALS (WET MOUNT) 4+ EPITHELIALS SEEN
[2018-05-24 09:33] LABS: APPEARANCE,URINE SLIGHTLY-CLOUDY; BILIRUBIN,URINE NEGATIVE (NEGATIVE); COLOR,URINE YELLOW; GLUCOSE, URINE NEGATIVE (NEGATIVE); KETONES,URINE NEGATIVE (NEGATIVE); LEUKOCYTE ESTERASE,URINE MODERATE (NEGATIVE); NITRITE,URINE NEGATIVE (NEGATIVE); PROTEIN,URINE NEGATIVE (NEGATIVE); URINE SPECIFIC GRAVITY 1.008; UROBILINOGEN,URINE NEGATIVE mg/dL (<2.0)
[2018-05-24 09:48] LABS: URINE AMPHETAMINES SCREEN NEGATIVE; URINE BARBITURATES SCREEN NEGATIVE; URINE BENZODIAZEPINES SCREEN NEGATIVE; URINE COCAINE SCREEN NEGATIVE; URINE METHADONE SCREEN NEGATIVE; URINE PHENCYCLIDINE SCREEN NEGATIVE
[2018-05-24] MEDS ORDERED: LIDOCAINE 2% JELLY 5 ML TUBE ONE (09:51)
[2018-05-24 09:57] LABS: URINE MARIJUANA (THC) SCREEN UNCONFIRMED POSITIVE
[2018-05-24] MEDS ORDERED: PENICILLIN G-K 5 MILLION UNIT VIAL ONE ×2 (10:20→16:29)
[2018-05-24] MEDS ORDERED: RINGERS SOLUTION,LACTATED 1,000 ML IV PRN (10:31)
[2018-05-24 10:56] LABS: CHLAM PCR NOT DETECTED (NOT DETECT); GON PCR NOT DETECTED (NOT DETECT)
--- NOTE | 2018-05-24 11:13 | Admission Physical ---
Datetime Report Generated by CPN: 05/24/2018 11:13 CURRENT ADMISSION Chief Complaint: Suspected Ruptured Membranes Indication for Induction: Not Applicable Admit Impression : Term, Intrauterine ; No Active Labor Admit Plan: Admit to Unit; Initiate Labor Protocol ALLERGIES Medication Allergies: Yes Medication Allergies: penicillin V (05/21/2018) Latex: No Latex Allergies Food Allergies: none Environmental Allergies: None OBSTETRICAL HISTORY EDC: 06/01/2018 00:00 : 2 Para: 1 Term: 1 : 0 SAB: 0 IAB: 0 Ectopic: 0 Livin Cesareans: 0 VBACs: 0 Multiple Births: 0 Gestational Diabetes: No Rh Sensitization: No Incompetent Cervix: No TEGAN: No Infertility: No ART Treatment: No Uterine Anomaly: No IUGR: No Hx Previous C/S: No Macrosomia: No Hx Loss/Stillborn: No PIH: No Hx : No Placenta Previa/Abruption: No Depression/PP Depression: No PTL/PROM: No Post Hemorrhage: No Current Procedures: Ultrasound; NST Obstetrical History Comments: 2016, GDM, G-2 Current SEE RECORDS Alcohol: No Marijuana : No Cocaine: No Other Illicit Drugs: No Cigarettes: Former Smoker. 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 Surgery: No Heart Disease: No Hosp/Surgery: No Autoimmune Disorder: No Anesthetic Complications: No Kidney Disease: No Abnormal Pap Smear: No Neuro/Epilepsy: No Psychiatric Disorders: No Other Medical Diseases: No Hepatitis/Liver Disease: No Significant Family History: No Varicosities/Phlebitis: No Trauma/Violence : No Thyroid Dysfunction: No Medical History Comments: Hospitalization childbirth INFECTIOUS HISTORY Gonorrhea: No Genital Herpes: No Chlamydia: No Tuberculosis: No Syphilis: No Hepatitis: No HIV/AIDS Exposure: No Rash or Viral Illness: No HPV: No PHYSICAL EXAM General: Normal HEENT: Normal Neurologic: Normal Thyroid: Normal Heart: Normal Lungs: Normal Breast: Normal Back: Normal Abdomen: Normal Genitourinary Exam: Normal Extremities: Normal DTRs: Normal Pelvic Type: Adequate Vital Signs: Reviewed; Within Normal Limits VAGINAL EXAM Dilatation: 5 Effacement: 75 Station: -2 MEMBRANES Pooling: Negative Membranes: Ruptured FETUS A EGA: 38.6 Monitoring: External US FHR- Baseline: 140 Variability: Moderate 6-25bpm Accelerations: 15X15 Decelerations: None FHR Category: Category I Estimated Weight (gm): 3500 Presentation: Vertex PLANS FOR LABOR AND DELIVERY Labor and Delivery: None Pain Management: Epidural Feeding Preference: Both Circumcision: Yes INFORMED CONSENT Signature: with User ID: Rosa Maria
[2018-05-24 11:23] LABS: ABSOLUTE LYMPHOCYTES (AUTO) 1.3 10^3/uL (0.5-4.7); ABSOLUTE MONOCYTES (AUTO) 0.7 10^3/uL (0.1-1.4); ABSOLUTE NEUT (AUTO) 7.6 10^3/uL (1.7-8.2); BASOPHILS % (AUTO) 0.4 % (0-2); EOSINOPHILS % (AUTO) 0.3 % (0-6); HEMATOCRIT 36.4 % (36.0-47.0); HEMOGLOBIN 12.2 g/dL (12.0-15.5); LYMPHOCYTES % (AUTO) 13.9 % (13-45); MEAN CORPUSCULAR HEMOGLOBIN 30.4 pg (27.0-33.4); MEAN CORPUSCULAR HGB CONC 33.7 g/dL (32.0-36.0); MEAN CORPUSCULAR VOLUME 90 fl (80-97); PLATELET COUNT 202 10^3/uL (150-450); RED BLOOD COUNT 4.02 10^6/uL (3.72-5.28); RED CELL DISTRIBUTION WIDTH 14.3 % (11.5-14.0); SEGMENTED NEUTROPHILS % (AUTO) 78.4 % (42-78); TOTAL CELLS COUNTED % (AUTO) 100 %; WHITE BLOOD COUNT 9.6 10^3/uL (4.0-10.5)
[2018-05-24] MEDS ORDERED: OXYTOCIN/NORMAL SALINE 20 UNIT/1,000 ML RTUINJ IV PRN ×2 (12:54→20:17)
[2018-05-24] MEDS ORDERED: OXYTOCIN/NORMAL SALINE 0 UNIT/0 ML RTUINJ ONE (12:59)
[2018-05-24] MEDS: PENICILLIN G POTASSIUM 2,500,000 UNIT in DEXTROSE 5%-WATER 50 ML IV SCH (16:41)
[2018-05-24] MEDS ORDERED: MISOPROSTOL 0.2 MG TABLET ONE (17:09)
[2018-05-24] MEDS ORDERED: OXYTOCIN 10 UNIT/ML VIAL ONE (17:09)
[2018-05-24] MEDS ORDERED: PHENYLEPHRINE HCL INJ/PF 10 MG/1 ML SDV ONE (17:09)
[2018-05-24] MEDS ORDERED: EPHEDRINE SULFATE INJ 50 MG/1 ML AMPULE ONE (17:10)
[2018-05-24] MEDS ORDERED: OXYTOCIN/NORMAL SALINE 20 UNIT/1,000 ML RTUINJ ONE (17:10)
[2018-05-24] MEDS ORDERED: LIDOCAINE 1% INJ-PF (10 MG/ML) 30 ML SDV ONE (17:10)
[2018-05-24] MEDS ORDERED: FENTANYL/BUPIVACAINE/NS/PF 300 MCG/150 ML RTUINJ EPI ONE ×2 (17:10→18:42)
[2018-05-24] MEDS ORDERED: BUPIVACAINE HCL 0.25 % INJ/PF (2.5 MG/1 ML) 30 ML VIAL ONE (17:10)
[2018-05-24] MEDS ORDERED: FENTANYL CITRATE INJ/PF 100 MCG/2 ML AMPUL ONE (17:10)
[2018-05-24] MEDS ORDERED: LIDOCAINE 1.5%/EPINEPHRINE INJ 5 ML AMP ONE (17:11)
[2018-05-24] MEDS ORDERED: DIPHENHYDRAMINE HCL 25 MG CAPSULE PO PRN (20:17)
[2018-05-24] MEDS ORDERED: NA PHOS,M-B/NA PHOS,DI-BA (ADULT) 133 ML ENEMA PR PRN (20:17)
[2018-05-24] MEDS ORDERED: ACETAMINOPHEN WITH CODEINE #3 TABLET PO PRN ×2 (20:17)
[2018-05-24] MEDS ORDERED: PROMETHAZINE HCL 25 MG SUPP.RECT PR PRN (20:17)
[2018-05-24] MEDS ORDERED: MEASLES,MUMPS&RUBELLA VACC/PF 0.5 ML VIAL SUBCUT PRN (20:17)
[2018-05-24] MEDS ORDERED: PROMETHAZINE HCL INJ 25 MG/1 ML VIAL IV PRN (20:17)
[2018-05-24] MEDS ORDERED: DIPH/PERTUSS(ACELL)/TETANUS VAC/PF 0.5 ML SYR (>=10YO) IM PRN (20:17)
[2018-05-24] MEDS ORDERED: MAGNESIUM HYDROXIDE SUSP 30 ML UDCUP PO PRN (20:17)
[2018-05-24] MEDS ORDERED: BENZOCAINE/MENTHOL AEROSOL SPRAY 56 ML TOP PRN (20:17)
[2018-05-24] MEDS ORDERED: PROMETHAZINE HCL 25 MG TABLET PO PRN (20:17)
[2018-05-24] MEDS ORDERED: ZOLPIDEM TARTRATE 5 MG TABLET PO PRN (20:17)
[2018-05-24] MEDS ORDERED: GLYCERIN/WITCH HAZEL LEAF 1 EACH MED..PAD TP PRN (20:17)
[2018-05-24] MEDS ORDERED: PSEUDOEPHEDRINE HCL 30 MG TABLET PO PRN (20:17)
[2018-05-24] MEDS ORDERED: ACETAMINOPHEN 650 MG SUPP.RECT PR PRN (20:17)
[2018-05-24] MEDS ORDERED: DIBUCAINE 1% OINTMENT 56 GM TP PRN (20:17)
[2018-05-24] MEDS ORDERED: IBUPROFEN 800 MG TABLET ONE (21:33)
[2018-05-24] MEDS: IBUPROFEN 800 MG TABLET PO SCH (21:35)
--- NOTE | 2018-05-24 22:00 | Delivery Summary ---
Del Sum A-C Datetime Report Generated by CPN: 05/24/2018 21:59 DELIVERY PERSONNEL DELIVERY PERSONNEL: [id number] Delivery Doctor:: Shiela Tierney MD Labor and Delivery Nurse:: Asia Drake RNdiesel engine engineer Nurse:: Jordyn Escudero, RN Histology Teacher/DIE MAKER TRIM: Mayra Leander, ST MATERNAL INFORMATION Delivery Anesthesia: Epidural Medications After Delivery: Pitocin Drip 20 Units/1000ml NSS Estimated Blood Loss (ml): 200 Maternal Complications: None LABOR SUMMARY EDC: 06/01/2018 00:00 No. Babies in Womb: 1 Attempted: No Labor Anesthesia: Epidural LABOR INFORMATION Reason for Induction: Not Applicable Onset of Labor: 05/24/2018 08:00 Complete Dilatation: 05/24/2018 18:48 Oxytocin: Augmentation Group B Beta Strep: negative Antibiotics # of Doses: 0 Steroids Given: None Reason Steroids Not Administered: Not Applicable MEMBRANES Membranes Rupture Method: Spontaneous Rupture of Membranes: 05/24/2018 08:00 Length of Rupture (hr): 12.17 Amniotic Fluid Color: Clear Amniotic Fluid Amount: Small Amniotic Fluid Odor: Normal STAGES OF LABOR Stage 1 hr: 10 Stage 1 min: 48 Stage 2 hr: 1 Stage 2 min: 22 Stage 3 hr: 0 Stage 3 min: 2 Total Time in Labor hr: 12 Total Time in Labor min: 12 VAGINAL DELIVERY Episiotomy: None Laceration #1: None Laceration Extension #1: N/A Laceration Repair: Not Applicable Sponge Count Correct: N/A Sharps Count Correct: N/A CSECTION DELIVERY Primary Indication: N/A Secondary Indication: N/A CSection Incidence: N/A Labor: N/A Elective: N/A CSection Incision: N/A BABY A INFORMATION Delivery Date/Time: 05/24/2018 20:10 Method of Delivery: Vaginal Born in Route : No : N/A Forceps: N/A Vacuum Extraction: N/A Shoulder Dystocia : No PRESENTATION/POSITION BABY A Presentation: Cephalic Cephalic Presentation: Vertex Vertex Position: Left Occipital Anterior Breech Presentation: N/A PLACENTA INFORMATION BABY A Placenta Delivery Time : 05/24/2018 20:12 Placenta Method of Delivery: Spontaneous Placenta Status: Delivered SCORES BABY A Heart Rate 1 min: >100 bpm Resp Effort 1 min: Good Cry Reflex Irritability 1 min: Cough or Sneeze or Pulls Away Muscle Tone 1 min: Active Motion Color 1 min: Blue/Pale Resuscitation Effort 1 min: Tactile Stimulation SCORE 1 MIN: 8 Heart Rate 5 min: >100 bpm Resp Effort 5 min: Good Cry Reflex Irritability 5 min: Cough or Sneeze or Pulls Away Muscle Tone 5 min: Active Motion Color 5 min: Body [place], Extremities Blue Resuscitation Effort 5 min: Tactile Stimulation SCORE 5 MIN: 9 INFORMATION BABY A Gestational Age at Delivery: 38.6 Gestational Status: Early Term- 37- 38.6 Weeks Infant Outcome : Liveborn Infant Condition : Stable Sex: Male IDENTIFICATION BABY A Verification Date/Time: 05/24/2018 20:30 ID Band Number: [id number] Mother's Name Verified: Yes RN Verifying : C Gentilin, RN NDoyle RN WEIGHT/LENGTH BABY A Infant Birthweight (gm): 3149 Weight (lb): 6 Infant Weight (oz): 15 Infant Length (in): 19.00 Infant Length (cm): 48.26 CORD INFORMATION BABY A No. Cord Vessels: 3 Nuchal Cord : Around Neck x1, Loose Nuchal Cord- Other: body cord Cord Blood Taken: Yes-For Storage (Mom's Blood type +) Infant Suction: Mouth ASSESSMENT BABY A Infant Complications: Multiple Variable Decels Physical Findings at Delivery: Within Normal Limits Respirations: Appears Normal Skin to Skin: Yes Hourly Manager/ALS Called : No Infant Care By: rn gentilin Transferred To: Remains with Mother BABY B INFORMATION : N/A SIGNATURES Signature: with User ID: Rosa Maria
[2018-05-25] MEDS: FAMOTIDINE 20 MG TABLET PO SCH ×3 (03:02→21:25)
[2018-05-25] MEDS: PENICILLIN G POTASSIUM 2,500,000 UNIT in DEXTROSE 5%-WATER 50 ML IV SCH ×2 (03:05→03:06)
[2018-05-25] MEDS: IBUPROFEN 800 MG TABLET PO SCH ×3 (05:53→21:25)
[2018-05-25 06:55] LABS: HEMATOCRIT 33.5 % (36.0-47.0); HEMOGLOBIN 11.2 g/dL (12.0-15.5); MEAN CORPUSCULAR HEMOGLOBIN 30.5 pg (27.0-33.4); MEAN CORPUSCULAR HGB CONC 33.4 g/dL (32.0-36.0); MEAN CORPUSCULAR VOLUME 91 fl (80-97); PLATELET COUNT 199 10^3/uL (150-450); RED BLOOD COUNT 3.67 10^6/uL (3.72-5.28); RED CELL DISTRIBUTION WIDTH 14.2 % (11.5-14.0); WHITE BLOOD COUNT 12.9 10^3/uL (4.0-10.5)
--- NOTE | 2018-05-25 09:53 | PDOC PROGRESS REPORT ---
Subjective Progress Note for:: 05/25/18 Subjective:: Patient states that her cramping is severe. She is breast-feeding, which is going well. Her lochia is decreasing. Patient denies chest pain, shortness of breath, fever/chills or nausea/vomiting. She is ambulating voiding without difficulty. Reason For Visit: Physical Exam - Physical Exam Vital Signs: Temp Pulse Resp BP Pulse Ox 98.2 F 68 15 115/77 97 05/25/18 08:14 05/25/18 08:14 05/25/18 08:14 05/25/18 08:14 05/25/18 08:14 Intake & Output 05/24/18 05/25/18 05/26/18 06:59 06:59 06:59 Intake Total 400 Balance 400 Weight 73.8 kg General appearance: PRESENT: no acute distress Respiratory exam: PRESENT: clear to auscultation jean Cardiovascular exam: PRESENT: RRR GI/Abdominal exam: PRESENT: normal bowel sounds, soft - Fundus firm and below umbilicus Musculoskeletal exam: ABSENT: ambulatory, deformity, dislocation, full ROM, normal inspection, tenderness, other Result Laboratory Results: 05/25/18 06:50 05/24/18 05/24/18 05/25/18 11:07 11:07 06:50 WBC 9.6 12.9 H RBC 4.02 3.67 L Hgb 12.2 11.2 L Hct 36.4 33.5 L MCV 90 91 MCH 30.4 30.5 MCHC 33.7 33.4 RDW 14.3 H 14.2 H Plt Count 202 199 Seg Neutrophils % 78.4 H Lymphocytes % 13.9 Monocytes % 7.0 Eosinophils % 0.3 Basophils % 0.4 Absolute Neutrophils 7.6 Absolute Lymphocytes 1.3 Absolute Monocytes 0.7 Absolute Eosinophils 0.0 Absolute Basophils 0.0 Blood Type B POSITIVE Antibody Screen NEGATIVE Assessment & Plan - Diagnosis (1) Marijuana use Is this a current diagnosis for this admission?: Yes (2) Maternal varicella, non-immune Is this a current diagnosis for this admission?: Yes (3) (normal spontaneous vaginal delivery) Is this a current diagnosis for this admission?: Yes (4) Poor patient attendance of care Is this a current diagnosis for this admission?: Yes - Time Time Spent with patient: Less than 15 minutes Within: within 48 hours - Plan Summary Plan Summary: Continue care
[2018-05-25] MEDS: SENNOSIDES/DOCUSATE 8.6-50 MG 1 EACH TABLET PO SCH (10:23)
[2018-05-25] MEDS: FERROUS SULFATE 325 MG TABLET PO SCH ×2 (10:24→18:11)
[2018-05-25] MEDS: DOCUSATE SODIUM 100 MG CAPSULE PO SCH ×2 (10:24→18:11)
[2018-05-25] MEDS: PRENATAL VITAMIN W DHA CAPSULE PO SCH (10:24)
[2018-05-26] MEDS: IBUPROFEN 800 MG TABLET PO SCH ×2 (05:24→13:31)
[2018-05-26 08:33] VITALS: BP 118/68
[2018-05-26] MEDS: DOCUSATE SODIUM 100 MG CAPSULE PO SCH (09:27)
[2018-05-26] MEDS: FERROUS SULFATE 325 MG TABLET PO SCH (09:27)
[2018-05-26] MEDS: SENNOSIDES/DOCUSATE 8.6-50 MG 1 EACH TABLET PO SCH (09:28)
[2018-05-26] MEDS: PRENATAL VITAMIN W DHA CAPSULE PO SCH (09:28)
[2018-05-26] MEDS: FAMOTIDINE 20 MG TABLET PO SCH (09:28)
--- NOTE | 2018-05-26 10:15 | PDOC PROGRESS REPORT ---
Subjective-OB Progress Note for:: 05/26/18 Subjective: Doing well, no c/o, breast/bottle Physical Exam (OB) Vital Signs: Temp Pulse Resp BP Pulse Ox 98.4 F 79 16 118/68 100 05/26/18 07:47 05/26/18 07:47 05/26/18 07:47 05/26/18 07:47 05/26/18 07:47 Intake & Output 05/25/18 05/26/18 05/27/18 06:59 06:59 06:59 Intake Total 400 500 450 Balance 400 500 450 Weight 73.8 kg - PIH/Pre-Eclampsia DTR's: 1 + Clonus: Negative Headache: Absent Epigastric Pain: No Visual Changes: No - Lochia Lochia Amount: Small 10-25 ml Lochia Color: Rubra/Red - Abdomen Description: Soft, Round Hernia Present: No Fundal Description: Firm Fundal Height: u/u - u/2 Objective-Diagnostic Laboratory: 05/25/18 06:50 Assessment and Plan(PN) - Assessment and Plan (1) Marijuana use Is this a current diagnosis for this admission?: Yes (2) Maternal varicella, non-immune Is this a current diagnosis for this admission?: Yes (3) (normal spontaneous vaginal delivery) Is this a current diagnosis for this admission?: Yes (4) Poor patient attendance of care Is this a current diagnosis for this admission?: Yes - Time Spent with Patient Time with patient: Less than 15 minutes Medications reviewed and adjusted accordingly: Yes - Disposition Anticipated Discharge: Home Within: within 24 hours
--- NOTE | 2018-05-26 10:18 | PDOC DISCHARGE SUMMARY ---
Final Diagnosis Discharge Date: 05/26/18 - Final Diagnosis (1) Marijuana use Is this a current diagnosis for this admission?: Yes (2) Maternal varicella, non-immune Is this a current diagnosis for this admission?: Yes (3) (normal spontaneous vaginal delivery) Is this a current diagnosis for this admission?: Yes (4) Poor patient attendance of care Is this a current diagnosis for this admission?: Yes Discharge Data - Discharge Medication Home Medications: Vit/Iron Fum/Folic AC [ Tablet] 1 tab PO DAILY 01/22/17 Gestational Age: 38.6 Reason(s) for Admission: Onset of Labor Procedures: Ultrasound Intrapartum Procedure(s): Spontaneous Vaginal Delivery - [place] Data Baby 1 Male at 1 minute: 8 at 5 minutes: 9 Weight: 3.147 kg Home with Mother: Yes Complications: No - Diagnosis Test Laboratory: Temp Pulse Resp BP Pulse Ox 98.4 F 79 16 118/68 100 05/26/18 07:47 05/26/18 07:47 05/26/18 07:47 05/26/18 07:47 05/26/18 07:47 05/24/18 05/24/18 05/25/18 08:19 11:07 06:50 RBC 4.02 3.67 L Hgb 12.2 11.2 L Hct 36.4 33.5 L Urine Opiates Screen NEGATIVE - Discharge information/Instructions Discharge Activity: Activity As Tolerated, No Lifting Over 10 Pounds, No Lifting/Push/Pulling, Pelvic Rest Discharge Diet: As Tolerated, Regular Disposition: HOME, SELF-CARE Follow up with: [facility] in: 3, Weeks
== END 2018-05-26 17:30 | disposition home or self-care (01) | DRG 806 ==
LOC: LC 08:12 → LAB 08:12 → LR 09:50 → 2S 22:42
PROVIDERS: ADMIT Obstetrics & Gynecology; ATTEND Obstetrics & Gynecology
PROC: 10E0XZZ Delivery of Products of Conception, External Approach (ICD-10-PCS; principal; 2018-05-24)
PROC: 3E0234Z Introduction of Serum, Toxoid and Vaccine into Muscle, Percutaneous Approach (ICD-10-PCS; 2018-05-26)
DX: O69.81X0 Labor and delivery complicated by cord around neck, without compression, not applicable or unspecified (principal); O99.324 Drug use complicating childbirth; Z37.0 Single live birth; O76 Abnormality in fetal heart rate and rhythm complicating labor and delivery; O40.3XX0 Polyhydramnios, third trimester, not applicable or unspecified; J45.909 Unspecified asthma, uncomplicated; O99.52 Diseases of the respiratory system complicating childbirth; F12.90 Cannabis use, unspecified, uncomplicated; Z3A.38 38 weeks gestation of pregnancy; Z23 Encounter for immunization
CPT/HCPCS: 36415; 80307; 80349; 81005; 84112; 85025; 85027; 86592; 86850; 86900; 86901; 87210; 87491; 87591; 90715; G0480; J2370; J2540; J2590; J3010; J3490